=== PATIENT | female | born 1965 | race Caucasian/White ===

== ENCOUNTER 2018-11-12 06:43 | Observation (INO) | payer OTHER ==
[2018-11-09 16:20] VITALS: BMI 36.3
[2018-11-12] VITALS (24 sets, daily range): BP systolic 95–141; BP diastolic 57–80; PULSE 76–93; RESP 10–20; Ht 167.6 cm; Wt 101.4 kg
[~2018-11-12] VITALS: Ht 167.6 cm; Wt 101.4 kg
[~2018-11-12 06:43] MED LIST: ALBU18HF INHALATION; BUDE6HFA INHALATION; LISI-471 PO; RIF120L PO; SULF-182 PO
[2018-11-12] MEDS ORDERED: CEFAZOLIN 2 GM/50 ML (PMX) 50 ML IVPB ONE (07:00)
[2018-11-12] MEDS ORDERED: SOD CHLORIDE 0.9% 1,000 ML IV ONE (07:00)
[2018-11-12] MEDS ORDERED: LISI40TA3 PO (07:38)
[2018-11-12] MEDS ORDERED: BUDE6HFA INHALATION (07:38)
[2018-11-12] MEDS ORDERED: ALBU18HF INHALATION (07:39)
--- NOTE | 2018-11-12 09:22 | PREAC ---
Date/Time of Note Date/Time of Note DATE: 11/12/18 TIME: 09:20 Anesthesia Eval and Record Evaluation Time Pre-Procedure Interview DATE: 11/12/18 TIME: 09:20 Age 53 Sex female NPO: 8 hrs Preoperative diagnosis Left Breast Cancer Planned procedure Left Modified Radical Mastectomy Past Medical History Past Medical History: Includes Cardio: HTN Pulm: COPD GI: Obesity Surgery & Anesthesia Issues No known issue Meds Anticoagulation: No Beta Wayne within 24 hr: No Reason Beta Wayne not given: Pt. not on B-Wayne Reported Medications Albuterol Sulfate* (Ventolin HFA*) 18 Gm Hfa.aer.ad, 2 PUFF INHALATION Q4H, #1 INHALER 11/12/18 Budesonide-Formoterol Fumarate* (Symbicort*) 160-4.5 Hfa.aer.ad, 2 PUFF INHALATION BID, #1 EACH 11/12/18 Lisinopril* (Lisinopril*) 40 Mg Tablet, 40 MG PO DAILY, #30 TAB 11/12/18 Discontinued Scripts Lisinopril* (Lisinopril*) 20 Mg Tablet, 20 MG PO DAILY, #30 TAB Prov:JIHAN SORIANO MD 10/01/17 Albuterol Sulfate* (Ventolin HFA*) 18 Gm Hfa.aer.ad, 2 PUFF INHALATION Q4H for 30 Days, #1 INHALER Prov:JIHAN SORIANO MD 10/01/17 Budesonide-Formoterol Fumarate* (Symbicort*) 160-4.5 Hfa.aer.ad, 2 PUFF INHALATION BID for WHEEZING AND SOB for 30 Days, #1 EACH Prov:JIHAN SORIANO MD 10/01/17 Rifampin* (Rifampin* Pediatric IV Syringe) 10 Mg/Ml Susp, 600 MG PO ONCE for 7 Days, #7 CAP Prov:JIHAN SORIANO MD 10/01/17 Sulfamethoxazole/Trimethoprim (Sulfamethoxazole-Tmp Ds Tablet) 1 Each Tablet, 1 TAB PO BID for 10 Days, #20 TAB Prov:JIHAN SORIANO MD 10/01/17 Current Medications Sodium Chloride 1,000 ml @ 75 mls/hr [id number] ONCE IV Last administered on 11/12/18at 07:23; Admin Dose 75 MLS/HR; Start 11/12/18 at 07:00; Stop 11/12/18 at 20:19 Meds reviewed: Yes Allergies Coded Allergies: No Known Allergies (Verified Allergy, Unknown, 11/12/18) Allergies Reviewed: Yes Labs/Studies Labs Reviewed: Reviewed by anesthesiologist test: N/A Studies: ECG (n/a), CXR (n/a) Pre-procedure Exam Last vitals Vital Signs Date Temp Pulse Resp B/P (MAP) Pulse Ox O2 O2 Flow FiO2 Time Delivery Rate 11/12/18 97.5 78 16 121/65 93 Room Air 07:31 (83) Airway: Adequate mouth opening, Adequate thyromental dist Mallampati: Mallampati II Teeth: Normal Lung: Normal Heart: Normal ASA Physical Status ASA physical status: 2 Emergency: None Planned Anesthetic General/MAC: ETT Planned Pain Management Parenteral pain med Pre-operative Attestations Prior to commencing anesthesia and surgery, the patient was re-evaluated, there was verification of: *The patient's identity *The results of appropriate recent lab work and preoperative vital signs *The above evaluation not changing prior to induction *Anesthetic plan, risk benefits, alternative and complications discussed with patient/family; questions answered; patient/family understands, accepts and wishes to proceed. DIAZ KHAN MD Nov 12, 2018 09:22
[2018-11-12] MEDS ORDERED: ROCURONIUM 50 MG INJ ONE (09:27)
[2018-11-12] MEDS ORDERED: PROPOFOL 20 ML ONE (09:27)
[2018-11-12] MEDS ORDERED: MIDAZOLAM 1 MG/ML 2 ML INJ ONE (09:27)
[2018-11-12] MEDS ORDERED: MEPERIDINE 25 MG INJ IV PRN (09:30)
[2018-11-12] MEDS ORDERED: OXYCODONE/ACETAMINOPHEN (5/325) TAB PO PRN ×2 (09:30)
[2018-11-12] MEDS ORDERED: DIPHENHYDRAMINE 50 MG INJ IV PRN (09:30)
[2018-11-12] MEDS ORDERED: EPHEDrine 25 MG/5 ML SYG IV PRN (09:30)
[2018-11-12] MEDS ORDERED: ALBUTEROL 0.083% (NEB) 2.5 MG/3 ML AMP HHN PRN (09:30)
[2018-11-12] MEDS ORDERED: LABETALOL HCL 20MG INJ IV PRN (09:30)
[2018-11-12] MEDS ORDERED: METOCLOPRAMIDE 10 MG INJ IV PRN (09:30)
[2018-11-12] MEDS ORDERED: IPRATROPIUM (NEB) 0.5 MG/2.5 ML AMP HHN PRN (09:30)
[2018-11-12] MEDS ORDERED: HYDROmorphONE 1 MG/5 ML IV SYRINGE IV PRN ×3 (09:30)
[2018-11-12] MEDS ORDERED: ONDANSETRON 4 MG INJ IV PRN ×2 (09:30→11:30)
[2018-11-12] MEDS ORDERED: FENTAnyl 50 MCG/ML VIAL IV PRN ×2 (09:30)
[2018-11-12] MEDS ORDERED: hydrALAzine 20 MG INJ IV PRN (09:30)
[2018-11-12] MEDS ORDERED: PHENYLephrine (100 MCG/ML) 10ML SYG ONE (09:43)
[2018-11-12] MEDS ORDERED: ONDANSETRON 4 MG INJ ONE (10:23)
[2018-11-12] MEDS ORDERED: DEXAMETHASONE 4 MG/ML 5 ML INJ ONE (10:23)
[2018-11-12] MEDS ORDERED: METOCLOPRAMIDE 10 MG INJ ONE (10:23)
--- NOTE | 2018-11-12 10:55 | PAC ---
Date/Time of Note Date/Time of Note DATE: 11/12/18 TIME: 10:54 Post-Anesthesia Notes Post-Anesthesia Note Last documented vital signs Vital Signs Date Temp Pulse Resp B/P (MAP) Pulse Ox O2 O2 Flow FiO2 Time Delivery Rate 11/12/18 97.5 78 16 121/65 93 Room Air 10:56 (83) Activity: WNL Respiratory function: WNL Cardiovascular function: WNL Mental status: Baseline Pain reasonably controlled: Yes Hydration appropriate: Yes Nausea/Vomiting absent: Yes DIAZ KHAN MD Nov 12, 2018 10:55
[2018-11-12] MEDS: FENTAnyl 50 MCG/ML VIAL IV PRN ×2 (11:02→11:34)
--- NOTE | 2018-11-12 11:03 | SIPON ---
Date/Time of Note Date/Time of Note DATE: 11/12/18 TIME: 11:01 Operative Report Preoperative Diagnosis Multicentric left breast cancer Postoperative Diagnosis Same Operation/Procedure Performed Left modified radical mastectomy Surgeon see signature line production administrative assistant Dr Tolliver Anesthesia: general Estimated blood loss: 50 - 100 ml's Transfusion Required none Specimen Left breast and axillary lymph nodes Grafts/Implants none Complications none KENTON FLORES MD Nov 12, 2018 11:03
[2018-11-12] MEDS ORDERED: ACETAMINOPHEN 1000MG/100ML IV 100 ML IVPB PRN (11:30)
--- NOTE | 2018-11-12 12:25 | OPR ---
DATE OF OPERATION: 11/12/2018 PREOPERATIVE DIAGNOSIS: Multicentric left breast cancer. POSTOPERATIVE DIAGNOSIS: Multicentric left breast cancer. OPERATION PERFORMED: Left modified radical mastectomy. ANESTHESIA: General. ANESTHESIOLOGIST: Alexandre Cox MD SURGEON: Kang Mabry MD EFFICIENCY MINER BLASTING: Quentin Gutierrez MD INDICATIONS FOR PROCEDURE: The patient is a 53-year-old female who underwent screening mammography a nd was found to have a very suspicious lesion within her left breast. Biopsy confirmed invasive canc er. She was also found to have radiographic evidence of probable axillary metastasis. Due to the fa ct that she had multicentric disease, the recommendation was made for modified radical mastectomy. S he consented and was scheduled for surgery. DESCRIPTION OF PROCEDURE: Patient was brought to the operating theater, placed under general endotra cheal tube anesthesia. The left breast and axillary region were prepped and draped in usual sterile fashion. Planned elliptical incision was made widely around the nipple areolar complex including a p ortion where there was a palpable mass. The incision was carried out with 15 blade scalpel and subcu taneous tissue was dissected with cautery. The skin edges were then elevated with Allis Francis clamps and skin flaps were created using cautery, first superiorly to the clavicle, then medially to the st ernal border, inferiorly to the inframammary fold and laterally until the latissimus dorsi muscle was identified throughout its course. Mastectomy then took place from medial to lateral using cautery. At the border of the pectoralis major muscle, the pectoralis minor muscle was identified. Clavipect oral fascia was incised with blunt dissection along the chest wall. The long thoracic nerve was iden tified and kept out of harm's way. More superiorly, the axillary vein was identified and dissected f rom medial to lateral. The thoracodorsal neurovascular bundle was then identified throughout its cou rse and kept out of harm's way. The axilla had evidence of palpable nodes consistent with probable m etastatic disease. A level 1 and level 2 node dissection was then performed with a combination of kay mondragon and the LigaSure device. Final connective tissue attachments at latissimus dorsi muscle were then transected with cautery. Specimen was oriented and sent for permanent pathologic analysis. Upo n inspection of the axilla, one additional suspicious node was identified. It was resected separatel y and sent for pathologic analysis. The wound was irrigated. Minimal bleeding was controlled with c autery. Two #10 Orlando-Carter drains were then brought through the left mid axillary line. One was cut to size and laid within the axilla. One was cut to size and laid over the pectoralis major muscl e. Both drains were secured in place with 2-0 nylon sutures in the standard fashion and the skin was then reapproximated with skin obinna. The patient tolerated the procedure well. The estimated blo od loss was approximately 100 mL. There were no complications and the patient was transported in sta ble condition to the recovery room where circumferential compression dressing was applied. Dictated By: KANG MABRY MD TL/NTS Conf#: [id number] DID#: [id number] CC: QUENTIN GUTIERREZ MD;*EndCC*
[2018-11-12] MEDS: morphine 2 MG INJ IV PRN ×2 (14:13→19:56)
[2018-11-12] MEDS: D5W-0.45 NACL + KCL 20 MEQ 1,000 ML IV SCH ×3 (14:34→22:59)
--- NOTE | 2018-11-12 15:15 | HP ---
Date/Time of Note Date/Time of Note DATE: 11/12/18 TIME: 15:02 Assessment/Plan VTE Prophylaxis Risk score (from Ns)>0 risk: 3 SCD applied (from Ns): Yes Pharmacological prophylaxis: NA/contraindicated Pharm contraindication: surgical contra Lines/Catheters IV Catheter Type (from Nrsg): Peripheral IV Assessment/Plan Assessment/Plan -Multicentric left breast cancer. S/p left modified radical mastectomy. Continue IV fluids and postoperative antibiotic with continue morphine and Tylenol PRN for pain and Zofran as needed for nausea. -Hypertension -History of asthma Further recommendations based on clinical course. Plan of care discussed with Dr. Olmos. HPI/ROS Admit Date/Time Admit Date/Time Nov 12, 2018 at 11:05 Hx of Present Illness The patient is a 53-year-old female with history of hypertension and asthma. Patient underwent screening mammography and was found to have suspicious lesion in her left breast, subsequent biopsy confirmed invasive cancer. Patient was found to have radiographic evidence of possible axillary metastasis. Patient was evaluated by Dr. Mabry in general surgery consultation and recommended modified radical mastectomy due to the multicentric nature of the disease. Patient was brought to the hospital and underwent left radical mastectomy. Postoperatively patient experiencing moderate pain and patient is admitted for further evaluation and management. ROS 12 point review of system is negative except for what mentioned in HPI PMH/Family/Social Past Medical History Medical History: hypertension, other (Asthma) Medications Current Medications Ondansetron HCl (Zofran Inj) 4 mg Q6H PRN IV NAUSEA AND/OR VOMITING; Start 11/12/18 at 11:30 Potassium Chloride/Dextrose/ Sod Cl 1,000 ml @ 125 mls/hr Q8H IV Last administered on 11/12/18at 14:34; Admin Dose 125 MLS/HR; Start 11/12/18 at 11:03 Morphine Sulfate (morphine) 2 mg Q1H PRN IV PAIN Last administered on 11/12/18at 14:13; Admin Dose 2 MG; Start 11/12/18 at 11:30 Acetaminophen 100 ml @ 400 mls/hr Q6H PRN IVPB PAIN; Start 11/12/18 at 11:30; Stop 11/13/18 at 11:29 Coded Allergies: No Known Allergies (Verified Allergy, Unknown, 11/12/18) Past Surgical History Past Surgical Hx: other (Status post left lower extremities wound I&D, status post C-sections, status post oral surgery) Family History Significant Family History: no pertinent family hx Social History Alcohol Use: none Smoking Status: Former smoker Drug Use: none Exam/Review of Systems Vital Signs Vitals Vital Signs Date Temp Pulse Resp B/P (MAP) Pulse Ox O2 O2 Flow FiO2 Time Delivery Rate 11/12/18 76 10 103/63 98 Nasal 3.0 12:00 (76) Cannula 11/12/18 97.6 10:57 Exam Constitutional: alert, oriented Head: normocephalic Neck: supple Respiratory: clear to auscultation Cardiovascular: nl pulses Gastrointestinal: soft, non-tender Musculoskeletal: nl extremities to inspection Extremities: normal pulses Neurological: nl mental status Skin: nl turgor, other (Status post left radical mastectomy, JPs x2) CELESTINO SWEENEY Nov 12, 2018 15:14
[2018-11-12] MEDS: ALBUTEROL HFA 8 GM INHALER INH SCH ×2 (17:50→21:15)
[2018-11-13] MEDS: ALBUTEROL HFA 8 GM INHALER INH SCH ×4 (01:26→13:00)
[2018-11-13] MEDS: D5W-0.45 NACL + KCL 20 MEQ 1,000 ML IV SCH (06:59)
[2018-11-13 07:18] VITALS: BP 135/58; PULSE 78; RESP 19
[2018-11-13] MEDS ORDERED: FLUTICASONE/VILANTEROL 200-25 INH DEVICE INH SCH (09:00)
[2018-11-13] MEDS ORDERED: LISINOPRIL 20 MG TAB PO SCH (09:00)
[2018-11-13] MEDS ORDERED: HYDROCODONE/APAP (5/325) TAB PO PRN (15:00)
[2018-11-13] MEDS ORDERED: HYDR-3601 PO (15:56)
--- NOTE | 2018-11-13 16:41 | PN ---
DATE: 11/13/2018 Postop day #1 status post left breast modified radical mastectomy. SUBJECTIVE: No specific complaint. Has been out of bed and walk around and tolerating diet. Pain i s under control. OBJECTIVE: GENERAL: Awake, oriented. VITAL SIGNS: Temperature maximum 98.6, heart rate 84, respirations 18, blood pressure 135/62, satura tion 95% room air. HEART: Regular. LUNGS: Clear. ABDOMEN: Soft. Dressing is intact. EXTREMITIES: The patient can move both upper extremities full range. SKIN: The bias drain dressing is not too tight. LABORATORY DATA: WBC 11,800 with 81% segmented, hemoglobin 11.2, hematocrit 34.8. INPUT AND OUTPUT: There are 2 Orlando-Carter drains. The drain from time of operation yesterday to 7 :00 today morning both together they have drained 278 mL and since 7:00 today they have drained abou t 40 mL and 25 mL serosanguineous respectively. PLAN: Instruction for care of Orlando-Carter and dressing was given to the patient's son who was on t he bedside. Pain medication will be given by medical service. The patient is to call Dr. Mabry' off ice and make an appointment for followup. Also, instruction was given to record the drainage every n ight on a piece of paper and keep the paper with her to Dr. Mabry' office when she goes there. Dictated By: ROLANDO GUTIERREZ MD PS/NTS Conf#: [id number] DID#: [id number] CC: KENTON MABRY MD; NATY ARCHER MD;*End*
--- NOTE | 2018-11-13 23:18 | DS ---
Date/Time of Note Date/Time of Note DATE: 11/13/18 TIME: 23:18 Discharge Summary Admission/Discharge Info Admit Date/Time Nov 12, 2018 at 11:05 Discharge Date/Time Nov 13, 2018 at 17:20 Patient Condition: Stable Hx of Present Illness The patient is a 53-year-old female with history of hypertension and asthma. Patient underwent screening mammography and was found to have suspicious lesion in her left breast, subsequent biopsy confirmed invasive cancer. Patient was found to have radiographic evidence of possible axillary metastasis. Patient was evaluated by Dr. Mabry in general surgery consultation and recommended yanna fied radical mastectomy due to the multicentric nature of the disease. Patient was brought to the hospital and underwent left radical mastectomy. Postoperatively patient experiencing moderate pain and patient is admitted for further evaluation and management. Hospital Course -Multicentric left breast cancer. S/p left modified radical mastectomy. Continue IV fluids and postoperative antibiotic with continue morphine and Tylenol PRN for pain and Zofran as needed for nausea. -Hypertension -History of asthma Plan of care discussed with Dr. Olmos. Home Meds Active Scripts Hydrocodone Bit-Acetaminophen (Hydrocodone Bit-APAP) 5-325MG Tablet, 1 TAB PO Q4H PRN for MODERATE PAIN LEVEL 4-6, #30 TAB Prov:CELESTINO SWEENEY 11/13/18 Reported Medications Albuterol Sulfate* (Ventolin HFA*) 18 Gm Hfa.aer.ad, 2 PUFF INHALATION Q4H, #1 INHALER 11/12/18 Budesonide-Formoterol Fumarate* (Symbicort*) 160-4.5 Hfa.aer.ad, 2 PUFF INHALATION BID, #1 EACH 11/12/18 Lisinopril* (Lisinopril*) 40 Mg Tablet, 40 MG PO DAILY, #30 TAB 11/12/18 Discontinued Scripts Lisinopril* (Lisinopril*) 20 Mg Tablet, 20 MG PO DAILY, #30 TAB Prov:JIHAN SORIANO MD 10/01/17 Albuterol Sulfate* (Ventolin HFA*) 18 Gm Hfa.aer.ad, 2 PUFF INHALATION Q4H for 30 Days, #1 INHALER Prov:JIHAN SORAINO MD 10/01/17 Budesonide-Formoterol Fumarate* (Symbicort*) 160-4.5 Hfa.aer.ad, 2 PUFF INHALATION BID for WHEEZING AND SOB for 30 Days, #1 EACH Prov:JIHAN SORIANO MD 10/01/17 Rifampin* (Rifampin* Pediatric IV Syringe) 10 Mg/Ml Susp, 600 MG PO ONCE for 7 Days, #7 CAP Prov:JIHAN SORIANO MD 10/01/17 Sulfamethoxazole/Trimethoprim (Sulfamethoxazole-Tmp Ds Tablet) 1 Each Tablet, 1 TAB PO BID for 10 Days, #20 TAB Prov:JIHAN SORIANO MD 10/01/17 Follow-up Plan Follow-up with Dr. Mabry in 1 to 2 weeks. Primary Care Provider Not On Staff Doctor Time spent on discharge: > 30 minutes Pending Labs Laboratory Tests Test 11/13/18 04:23 11/13/18 07:46 White Blood Count 11.8 10^3/ul (4.8-10.8) Red Blood Count 3.76 10^6/ul (4.20-5.40) Hemoglobin 11.2 g/dl (12.0-16.0) Hematocrit 34.8 % (37.0-47.0) Mean Corpuscular Volume 92.6 fl (82.0-101.0) Mean Corpuscular Hemoglobin 29.8 pg (29.0-33.0) Mean Corpuscular 32.2 g/dl (32.0-37.0) Hemoglobin Concent Red Cell Distribution Width 13.2 % (11.5-14.5) Platelet Count 242 10^3/UL (140-415) Mean Platelet Volume 11.2 fl (7.4-10.4) Immature Granulocytes % 0.400 % (0.001-0.429) Neutrophils % 81.2 % (39.0-77.0) Lymphocytes % 12.1 % (15.0-51.0) Monocytes % 5.8 % (0.0-11.0) Eosinophils % 0.2 % (0.0-7.0) Basophils % 0.3 % (0.0-2.0) Nucleated Red Blood Cells % 0.0 /100WBC (0.0-0.0) Immature Granulocytes # 0.050 10^3/ul (0.0-0.031) Neutrophils # 9.6 10^3/ul (1.6-7.5) Lymphocytes # 1.4 10^3/ul (0.8-2.9) Monocytes # 0.7 10^3/ul (0.3-0.9) Eosinophils # 0.0 10^3/ul (0.0-0.5) Basophils # 0.0 10^3/ul (0.0-0.1) Nucleated Red Blood Cells # 0.0 10^3/ul (0.0-0.0) Sodium Level 144 mmol/L (135-144) Potassium Level 4.9 mmol/L (3.5-5.1) Chloride Level 112 mmol/L (97-110) Carbon Dioxide Level 26 mmol/L (21-31) Anion Gap 6 (5-13) Blood Urea Nitrogen 12 mg/dl (7-20) Creatinine 0.73 mg/dl (0.44-1.00) Est Glomerular Filtrat > 60 mL/min (>60) Rate mL/min Glucose Level 167 mg/dl (70-220) Calcium Level 8.2 mg/dl (8.4-10.2) Lab Scanned Report REFER[facility] [id number] CELESTINO SWEENEY Nov 13, 2018 23:18
--- NOTE | 2018-11-14 15:44 | RADRPT ---
Vent Rate: 72 bpm RR Interval: 836 msec MS Interval: 161 msec QRS Duration: 95 msec QT Interval: 414 msec QTC Interval: 453 msec P-R-T [place]: 75 - 70 - 77 degrees Sinus rhythm...normal P axis, V-rate 50- 99 Electronically Signed By: Redd Roberts
== END 2018-11-13 17:20 | disposition home or self-care (01) ==
LOC: SDS 06:43 → REC 11:05 → INTOOBSV 11:05 → SDS 11:05 → MS1 12:33
PROVIDERS: ADMIT Surgery Surgical Oncology; ATTEND Surgery Surgical Oncology
DX: C50.812 Malignant neoplasm of overlapping sites of left female breast (principal); I10 Essential (primary) hypertension; J45.909 Unspecified asthma, uncomplicated
CPT/HCPCS: 19307; 71045; 80048; 84703; 85025; 88309; 93005; J1100; J2250; J2270; J2370; J2405; J2765; J3010; J3480; Z7500; Z7512; Z7610; 99217; G0378; J0690